=== PATIENT | female | born 1935 | race Caucasian/White ===

== ENCOUNTER 2020-07-12 11:05 | Emergency (ER) | payer MEDICARE, OTHER ==
--- NOTE | 2020-07-12 11:56 | EDM.PDOC ---
ED HPI GENERAL MEDICAL PROBLEM - General Stated Complaint: HIGH BLOOD PRESSURE Time Seen by Provider: 07/12/20 11:30 Source of Information: Reports: Patient History Limitations: Reports: No Limitations - History of Present Illness INITIAL COMMENTS - FREE TEXT/NARRATIVE: c/o b/l knee pain pt lives alone in town, moved to town ~7y ago, here with her son she has had chronic b/l knee pain, saw [facility] for the same 4y ago took ibuprofen which did not help last night does not take pain meds on a regular basis of any kind or any Rx meds or OTC meds has not seen a physician in 5-10 years never smoked, no prior CV problems pt went to urgent care, BP there was 238/110, 224/103, 225/107 it is lower here at 215/90 pt says she was on a BP pill until a yr ago, altho it must have been longer no falls in past year has a walker and cane at home, rarely uses did have both COVID vax 2m ago SH: 2 sons live in town, 2 other children live nearby Bilateral Knee Pain Score (Numeric/FACES): 5 - Related Data Allergies Allergy/AdvReac Type Severity Reaction Status Date / Time atorvastatin [From Lipitor] Allergy Cannot Verified 07/12/20 12:40 Remember Home Meds: Home Meds Lisinopril/Hydrochlorothiazide [Lisinopril-Hctz 10-12.5 mg Tab] 0.5 tab PO DAILY #30 tablet 07/12/20 [Rx] Potassium Chloride 10 meq PO BID #14 tablet.er 07/12/20 [Rx] Sulfamethoxazole/Trimethoprim [Sulfamethoxazole-Tmp Ds Tablet] 1 each PO BID #10 tablet 07/12/20 [Rx] Past Medical History - Past Health History Medical/Surgical History: Denies Medical/Surgical History Musculoskeletal History: Reports: Osteoarthritis - Past Surgical History Musculoskeletal Surgical History: Reports: None ED ROS GENERAL - Review of Systems Review Of Systems: See Below Constitutional: Reports: No Symptoms HEENT: Reports: No Symptoms Respiratory: Reports: No Symptoms. Denies: Shortness of Breath Cardiovascular: Reports: No Symptoms. Denies: Chest Pain Endocrine: Reports: No Symptoms GI/Abdominal: Reports: No Symptoms : Reports: No Symptoms Musculoskeletal: Reports: No Symptoms Skin: Reports: No Symptoms Neurological: Reports: No Symptoms Psychiatric: Reports: No Symptoms Hematologic/Lymphatic: Reports: No Symptoms Immunologic: Reports: No Symptoms ED EXAM, GENERAL - Physical Exam Exam: See Below Exam Limited By: No Limitations General Appearance: Alert, WD/WN, No Apparent Distress Ears: Hearing Grossly Normal Nose: Normal Inspection Head: Atraumatic, Normocephalic Neck: Normal Inspection, Supple, Non-Tender, Full Range of Motion Respiratory/Chest: No Respiratory Distress, Lungs Clear, Normal Breath Sounds, Chest Non-Tender Cardiovascular: Regular Rate, Rhythm, No Edema, Other (2/6 JIN at LSB) GI/Abdominal: Normal Bowel Sounds, Soft, Non-Tender, No Distention Back Exam: Normal Inspection, Full Range of Motion Extremities: No Pedal Edema, Other (mild b/l knee effusions, mild tender to compression, no LCL/MCL tender, no pretib edema, moderate dec'd turgor UEs without tenting) Neurological: Alert, CN II-XII Intact, Normal Cognition, No Motor/Sensory Deficits Psychiatric: Normal Affect, Normal Mood Skin Exam: Warm, Dry, Intact, Normal Color, No Rash Lymphatic: No Adenopathy Course - Vital Signs Last Recorded V/S: Last Vital Signs Temp 36.7 C 07/12/20 11:57 Pulse 75 07/12/20 11:57 Resp 16 07/12/20 11:57 BP 256/85 H 07/12/20 11:57 Pulse Ox 97 07/12/20 11:57 - Orders/Labs/Meds Orders: Active Orders 24 hr Category Date Time Status CULTURE URINE [RM] Stat Lab 07/12/20 12:14 Ordered Labs: Laboratory Tests 07/12/20 07/12/20 07/12/20 Range/Units 11:50 12:00 12:00 WBC 9.5 (3.0-10.3) x10-3/uL RBC 4.83 (3.60-5.20) x10(6)uL Hgb 14.3 (11.4-15.5) g/dL Hct 43.3 (34.2-48.2) % MCV 89.7 (76.7-100.5) fL MCH 29.6 (23.9-33.9) pg MCHC 33.0 (31.9-34.8) g/dL RDW 13.5 (12.3-16.5) % Plt Count 258 (151-488) x10(3)uL MPV 8.0 (7.1-12.4) fL Neut % (Auto) 70.9 (30.8-76.2) % Lymph % (Auto) 20.0 (18.4-52.1) % Rush % (Auto) 7.0 (4.4-15.7) % Eos % (Auto) 1.8 (0.6-8.1) % Baso % (Auto) 0.3 (0.2-1.5) % Neut # (Auto) 6.7 H (1.5-6.3) x10-3/uL Lymph # (Auto) 1.9 (1.0-4.4) x10-3/uL Rush # (Auto) 0.7 (0.3-1.0) x10-3/uL Eos # (Auto) 0.2 (0.0-0.8) x10-3/uL Baso # (Auto) 0.0 (0.0-0.1) x10-3/uL Sodium 144 (135-145) mmol/L Potassium 3.1 L (3.5-5.3) mmol/L Chloride 101 (100-110) mmol/L Carbon Dioxide 34 H (21-32) mmol/L BUN 21 H (7-18) mg/dL Creatinine 1.1 H (0.55-1.02) mg/dL Est Cr Clr Drug Dosing TNP Estimated GFR (MDRD) 47 L (>60) BUN/Creatinine Ratio 19.1 (9-20) Glucose 109 (80-116) mg/dL Calcium 9.1 (8.6-10.2) mg/dL Magnesium (1.8-2.5) mg/dL Total Bilirubin 0.9 (0.1-1.3) mg/dL AST 22 (5-25) IU/L ALT 26 (12-36) U/L Alkaline Phosphatase 82 (56-112) IU/L Total Protein 7.6 (6.0-8.0) g/dL Albumin 3.5 (3.2-4.6) g/dL Globulin 4.1 g/dL Albumin/Globulin Ratio 0.9 TSH, Ultra Sensitive (0.36-3.74) IU/mL Urine Color Yellow (YELLOW) Urine Appearance Cloudy (CLEAR) Urine pH 7.0 H (5.0-6.5) Ur Specific [place] 1.010 (1.010-1.025) Urine Protein 500 H (NEGATIVE) mg/dL Urine Glucose (UA) Normal (NORMAL) mg/dL Urine Ketones Negative (NEGATIVE) mg/dL Urine Occult Blood Moderate H (NEGATIVE) Urine Nitrite Negative (NEGATIVE) Urine Bilirubin Negative (NEGATIVE) Urine Urobilinogen Normal (NEGATIVE) mg/dL Ur Leukocyte Esterase Large H (NEGATIVE) Urine WBC Packed H (0-5) 07/12/20 07/12/20 Range/Units 12:00 12:00 WBC (3.0-10.3) x10-3/uL RBC (3.60-5.20) x10(6)uL Hgb (11.4-15.5) g/dL Hct (34.2-48.2) % MCV (76.7-100.5) fL MCH (23.9-33.9) pg MCHC (31.9-34.8) g/dL RDW (12.3-16.5) % Plt Count (151-488) x10(3)uL MPV (7.1-12.4) fL Neut % (Auto) (30.8-76.2) % Lymph % (Auto) (18.4-52.1) % Rush % (Auto) (4.4-15.7) % Eos % (Auto) (0.6-8.1) % Baso % (Auto) (0.2-1.5) % Neut # (Auto) (1.5-6.3) x10-3/uL Lymph # (Auto) (1.0-4.4) x10-3/uL Rush # (Auto) (0.3-1.0) x10-3/uL Eos # (Auto) (0.0-0.8) x10-3/uL Baso # (Auto) (0.0-0.1) x10-3/uL Sodium (135-145) mmol/L Potassium (3.5-5.3) mmol/L Chloride (100-110) mmol/L Carbon Dioxide (21-32) mmol/L BUN (7-18) mg/dL Creatinine (0.55-1.02) mg/dL Est Cr Clr Drug Dosing Estimated GFR (MDRD) (>60) BUN/Creatinine Ratio (9-20) Glucose (80-116) mg/dL Calcium (8.6-10.2) mg/dL Magnesium 2.2 (1.8-2.5) mg/dL Total Bilirubin (0.1-1.3) mg/dL AST (5-25) IU/L ALT (12-36) U/L Alkaline Phosphatase (56-112) IU/L Total Protein (6.0-8.0) g/dL Albumin (3.2-4.6) g/dL Globulin g/dL Albumin/Globulin Ratio TSH, Ultra Sensitive 1.96 (0.36-3.74) IU/mL Urine Color (YELLOW) Urine Appearance (CLEAR) Urine pH (5.0-6.5) Ur Specific [place] (1.010-1.025) Urine Protein (NEGATIVE) mg/dL Urine Glucose (UA) (NORMAL) mg/dL Urine Ketones (NEGATIVE) mg/dL Urine Occult Blood (NEGATIVE) Urine Nitrite (NEGATIVE) Urine Bilirubin (NEGATIVE) Urine Urobilinogen (NEGATIVE) mg/dL Ur Leukocyte Esterase (NEGATIVE) Urine WBC (0-5) - Re-Assessments/Exams Free Text/Narrative Re-Assessment/Exam: 07/12/20 12:45 DBP down to 85 without additional meds here SBP remains over 200 pt not able to remember prior BP med PACs noted on monitor repeat EKG with QTc 520, up from 450 on arrival will check Mg 07/12/20 12:51 SBP has come down to 200 07/12/20 13:01 tests results reviewed at length with pt and her son as white coat hypertension is a component of her inc'd BP, it will be counterproductive and potentially risky to give additional meds and decrease the BP precipitously in the ED when her inc'd BP is chronic Mg is 2.2 and wnl Departure - Departure Time of Disposition: 12:36 Disposition: Home, Self-Care 01 Condition: Good Clinical Impression: Elevated blood pressure reading with diagnosis of hypertension, Renal insufficiency, Hypokalemia, Urinary tract infection, Osteoarthritis of knees, bilateral Prescriptions: Lisinopril/Hydrochlorothiazide [Lisinopril-Hctz 10-12.5 mg Tab] 0.5 tab PO DAILY #30 tablet Potassium Chloride 10 meq PO BID #14 tablet.er Sulfamethoxazole/Trimethoprim [Sulfamethoxazole-Tmp Ds Tablet] 1 each PO BID #10 tablet Instructions: Osteoarthritis, Urinary Tract Infection, Adult, What You Need to Know About Osteoarthritis, Managing Your Hypertension, Hypertension, Adult Referrals: PCP,None [Primary Care Provider] - Additional Instructions: For pain and inflammation and swelling in your knees, take acetaminophen 500 mg 2 tabs 2 times a day. For elevated blood pressure, take lisinopril/hydrochlorothiazide 10/12.5 mg 1/2 tab daily for 2 weeks, then increase to 1 tab daily unless your doctor give you different instructions. For low potassium, take potassium 10 meq 1 tab 2 times a day for 7 days. For bladder infection, take trimethoprim/sulfamethoxazole DS 1 tab 2 times a day for 5 days. Check your blood pressure and home twice a day, record the readings, and take them in to show to your doctor at your next visit. See a primary care provider in 2 weeks to recheck your blood pressure and for further instructions. It is to be expected that you will be tired for 1-2 weeks as your body is getting used to a more normal blood pressure. Sepsis Event Note (ED) - Focused Exam Vital Signs: Vital Signs Temp Pulse Resp BP Pulse Ox 07/12/20 11:57 36.7 C 75 16 256/85 H 97 - My Orders Last 24 Hours: My Active Orders 07/12/20 12:14 CULTURE URINE [RM] Stat - Assessment/Plan Last 24 Hours: My Active Orders 07/12/20 12:14 CULTURE URINE [RM] Stat
[2020-07-12] MEDS ORDERED: Ketorolac 30 MG/ML SDV IVPUSH ONE (13:08)
== END 2020-07-12 14:45 | disposition home or self-care (01) ==
LOC: FB.ED 11:05
DX: M17.0 Bilateral primary osteoarthritis of knee (principal); N39.0 Urinary tract infection, site not specified; E87.6 Hypokalemia; Z88.8 Allergy status to other drugs, medicaments and biological substances; I10 Essential (primary) hypertension; N28.9 Disorder of kidney and ureter, unspecified; Z79.899 Other long term (current) drug therapy
CPT/HCPCS: 36415; 80053; 81001; 83735; 84443; 85025; 87086; 87088; 87186; 93005; 96374; 99283; J1885

== ENCOUNTER 2024-01-30 19:47 | Emergency (ER) | payer MEDICARE, OTHER ==
[2024-01-30] MEDS: Cephalexin 500 MG Cap PO ONE (21:20)
== END 2024-01-30 21:39 | disposition home or self-care (01) ==
LOC: FB.ED 19:47
DX: S60.562A Insect bite (nonvenomous) of left hand, initial encounter (principal); L03.114 Cellulitis of left upper limb; I10 Essential (primary) hypertension; E78.00 Pure hypercholesterolemia, unspecified; Z79.899 Other long term (current) drug therapy; X58.XXXA Exposure to other specified factors, initial encounter
CPT/HCPCS: 73130; 99283; A9270

== ENCOUNTER 2024-02-10 15:43 | Emergency (ER) | payer MEDICARE, OTHER ==
[2024-02-10] MEDS ORDERED: Sodium Chloride 0.9% 10 ML Syringe FLUSH PRN (16:00)
[2024-02-10 16:16] LABS: BASOPHILS PERCENT AUTO 0.1 % (0.2-1.5); EOSINOPHILS ABSOLUTE AUTO 0.3 x10-3/uL (0.0-0.8); HEMATOCRIT 39.2 % (34.2-48.2); HEMOGLOBIN 12.9 g/dL (11.4-15.5); LYMPHOCYTES ABSOLUTE AUTO 3.7 x10-3/uL (1.0-4.4); LYMPHOCYTES PERCENT AUTO 27.8 % (18.4-52.1); MEAN CORPUSCULAR HEMOGLOBIN 29.1 pg (23.9-33.9); MEAN CORPUSCULAR HGB CONC 32.8 g/dL (31.9-34.8); MEAN CORPUSCULAR VOLUME 88.7 fL (76.7-100.5); MEAN PLATELET VOLUME 7.5 fL (7.1-12.4); MONOCYTES ABSOLUTE AUTO 1.1 x10-3/uL (0.3-1.0); MONOCYTES PERCENT AUTO 7.9 % (4.4-15.7); NEUTROPHILS ABSOLUTE AUTO 8.4 x10-3/uL (1.5-6.3); NEUTROPHILS PERCENT AUTO 62.2 % (30.8-76.2); PLATELET COUNT,PLT 281 x10(3)uL (151-488); RED BLOOD CELL COUNT 4.42 x10(6)uL (3.60-5.20); RED CELL DISTRIBUTION WIDTH 13.9 % (12.3-16.5); WHITE BLOOD CELL COUNT,WBC 13.5 x10-3/uL (3.0-10.3)
[2024-02-10 16:24] LABS: BLOOD UREA NITROGEN,BUN 30 mg/dL (7-18); BUN/CREATININE RATIO 23.1 (9-20); CALCIUM 9.1 mg/dL (8.6-10.2); CARBON DIOXIDE,CO2 27 mmol/L (21-32); CHLORIDE,CL 107 mmol/L (100-110); CREATININE 1.3 mg/dL (0.55-1.02); ESTIMATED GFR 39 mL/min (>60); GLUCOSE RANDOM 139 mg/dL (80-116); POTASSIUM,K 3.3 mmol/L (3.5-5.3); SODIUM,NA 145 mmol/L (135-145)
[2024-02-10 16:25] LABS: INR 0.95 (1.00-1.24); PROTHROMBIN TIME 9.9 sec (9.0-11.1)
[2024-02-10] MEDS: Labetalol 20 MG/4 ML Syringe IVPUSH ONE (16:27)
[2024-02-10 16:30] LABS: A/G RATIO 1.1; ALANINE AMINOTRANSFERASE,ALT 29 U/L (12-36); ALKALINE PHOSPHATASE 86 IU/L (56-112); ASPARTATE AMNIOTRANSFERASE,AST 16 IU/L (5-25); BILIRUBIN TOTAL 0.6 mg/dL (0.1-1.3); EST CRCL DRUG DOSING (CG) 21.07 mL/min; PROTEIN TOTAL,TP 7.7 g/dL (6.0-8.0)
[2024-02-10] MEDS ORDERED: Labetalol 20 MG/4 ML Syringe IVPUSH ONE (16:38)
[2024-02-10] MEDS: niCARdipine HCl 25 MG in Sodium Chloride 0.9% 240 ML IV SCH (16:39)
[2024-02-10] MEDS: Tenecteplase 50 MG Kit IV ONE (16:50)
== END 2024-02-10 17:13 ==
LOC: FB.ED 15:43
DX: I63.9 Cerebral infarction, unspecified (principal); G83.9 Paralytic syndrome, unspecified; I48.91 Unspecified atrial fibrillation; I10 Essential (primary) hypertension; Z88.8 Allergy status to other drugs, medicaments and biological substances; Z79.899 Other long term (current) drug therapy
CPT/HCPCS: 37195; 70450; 80053; 85025; 85610; 93005; 96365; 96375; 99285; J1920; J3101; J7050; 93010